=== PATIENT | male | born 1980 | race African-American/Black ===

== ENCOUNTER 2021-02-11 23:48 | Emergency (ER) | payer SELFPAY ==
[~2021-02-11] VITALS: Ht 175.3 cm; Wt 72.6 kg
--- NOTE | 2021-02-12 00:08 | NUR ---
pt present to ER with bilat foot pain. pt able to ambulate without assist denies sob or chest pain. able to speak in complete sentences. pt a/o x3.
--- NOTE | 2021-02-12 00:09 | NUR ---
Dr. Turner at bedside for MSE
[2021-02-12] MEDS ORDERED: CLOT15CR27 TP (00:11)
[2021-02-12] MEDS ORDERED: FLUCONAZOLE 100 MG TABLET PO ONE (00:15)
[2021-02-12] MEDS ORDERED: FLUCONAZOLE 100 MG TABLET ONE (00:26)
--- NOTE | 2021-02-12 00:30 | NUR ---
Patient given written and verbal discharge instructions. Patient verbalizes understanding of instructions. Patient is ambulatory with steady gait. Refuses offer of prison placement. Patient given list of available shelters in surrounding area. pt with steady gait, no c/o dizziness or pain noted.
[2021-02-12 00:32] VITALS: BP 125/70
== END 2021-02-12 00:30 | disposition home or self-care (01) ==
LOC: ER 02-12 00:09
DX: M79.672 Pain in left foot (principal); M79.671 Pain in right foot; Z59.02 Unsheltered homelessness; F15.10 Other stimulant abuse, uncomplicated
CPT/HCPCS: A4663